=== PATIENT | male | born 2000 | race Caucasian/White ===

== ENCOUNTER 2024-12-02 08:12 | Emergency (ER) | payer MEDICAID ==
[~2024-12-02] VITALS: Ht 190.5 cm; Wt 102.3 kg
[2024-12-02 10:36] VITALS: BP 125/66; PULSE 66; RESP 14; TEMP 97.8; O2SAT 98
== END 2024-12-02 10:39 | disposition home or self-care (01) ==
LOC: ER 08:12
DX: S62.002A Unspecified fracture of navicular [scaphoid] bone of left wrist, initial encounter for closed fracture (principal); S32.018A Other fracture of first lumbar vertebra, initial encounter for closed fracture; S32.028A Other fracture of second lumbar vertebra, initial encounter for closed fracture; S32.038A Other fracture of third lumbar vertebra, initial encounter for closed fracture; S22.32XA Fracture of one rib, left side, initial encounter for closed fracture; V86.56XA Driver of dirt bike or motor/cross bike injured in nontraffic accident, initial encounter; Y93.89 Activity, other specified; Y92.89 Other specified places as the place of occurrence of the external cause; Y99.8 Other external cause status
CPT/HCPCS: 29125; 73110; 99283; A6446; A6449